=== PATIENT | female | born 1990 | race Caucasian/White ===

== ENCOUNTER 2020-11-28 11:52 | Emergency (ER) | payer MEDICAID ==
[~2020-11-28] VITALS: Ht 157.5 cm; Wt 70.8 kg
[2020-11-28 12:05] VITALS: BP 125/87; Ht 157.5 cm; Wt 70.8 kg
[2020-11-28] MEDS ORDERED: ULTRAM50 MG PO (13:53)
[2020-11-28] MEDS ORDERED: IBU600 M2 PO (13:53)
[2020-11-28] MEDS ORDERED: BACLOFEN10 MG PO (13:53)
== END 2020-11-28 14:00 | disposition home or self-care (01) ==
LOC: ED 11:52
DX: M62.838 Other muscle spasm (principal); M54.2 Cervicalgia